=== PATIENT | male | born 1955 | race American Indian/Alaskan Native ===

== ENCOUNTER 2018-06-16 11:25 | Outpatient (CLI) | payer OTHER ==
[2018-06-16] MEDS ORDERED: PROVENTIL IH ONE (12:32)
== END 2018-06-16 11:26 | disposition home or self-care (01) ==
LOC: PF 11:25
PROVIDERS: ATTEND Internal Medicine
DX: I11.0 Hypertensive heart disease with heart failure (principal); I50.9 Heart failure, unspecified; J44.9 Chronic obstructive pulmonary disease, unspecified; E11.9 Type 2 diabetes mellitus without complications; Z87.891 Personal history of nicotine dependence
CPT/HCPCS: 94060; 94640

== ENCOUNTER 2018-08-23 09:29 | Inpatient (IN) | payer OTHER ==
[2018-08-23 11:09] LABS: Basophils # (Auto) 0.1 K/mm3 (0.0-0.1); Basophils % (Auto) 1.1 % (0.0-1.8); Eosinophils # (Auto) 0.3 K/mm3 (0.0-0.4); Eosinophils % (Auto) 4.7 % (0.0-4.3); Hematocrit 37.3 % (35.5-45.6); Lymphocytes # (Auto) 1.7 K/mm3 (1.2-5.4); Lymphocytes % (Auto) 25.7 % (13.4-35.0); Mean Corpuscular HGB Conc 35 % (32-34); Mean Corpuscular Volume 91 fl (84-94); Monocytes # (Auto) 0.8 K/mm3 (0.0-0.8); Monocytes % (Auto) 13.2 % (0.0-7.3); Platelet Count 212 K/mm3 (140-440); Red Cell Distribution Width 15.3 % (13.2-15.2)
--- NOTE | 2018-08-23 11:18 | Emergency Department Report ---
ED Extremity Problem HPI - General Chief complaint: Extremity Injury, Upper Stated complaint: LFT ARM SWELLING/CONGESTED HEART Time Seen by Provider: 08/23/18 10:20 Source: patient Mode of arrival: Ambulatory Limitations: No Limitations - History of Present Illness Initial comments: Patient is a 62-year-old male with a past history of COPD diabetes hypertension who is presenting with left arm pain and swelling. Patient states he had a pacemaker placed last week in the left upper chest. Patient noted last night that his arm is now similar was in the bicep region and he has some swelling. Patient states he also has some discomfort near his surgery site last night. Patient denies any nausea vomiting fevers chills. Patient states he d oes have some shortness of breath however this is chronic and is not worse than his baseline. Severity scale (0 -10): 2 - Related Data Allergies Allergy/AdvReac Type Severity Reaction Status Date / Time No Known Allergies Allergy Verified 08/23/18 09:29 ED Review of Systems ROS: Stated complaint: LFT ARM SWELLING/CONGESTED HEART Other details as noted in HPI Comment: All other systems reviewed and negative ED Past Medical Hx - Past Medical History Hx Hypertension: Yes Hx Diabetes: Yes Hx Asthma: Yes Additional medical history: Hypothyroidism, staph infections - Surgical History Hx Pacemaker: Yes (defibillator) - Social History Smoking Status: Never Smoker Substance Use Type: None ED Physical Exam - General Limitations: No Limitations General appearance: alert, in no apparent distress - Head Head exam: Present: atraumatic, normocephalic - Eye Eye exam: Present: normal appearance - ENT ENT exam: Present: mucous membranes moist - Neck Neck exam: Present: normal inspection. Absent: tenderness - Respiratory Respiratory exam: Present: normal lung sounds bilaterally. Absent: respiratory distress, wheezes, rales, rhonchi - Cardiovascular Cardiovascular Exam: Present: regular rate, normal rhythm. Absent: systolic murmur, diastolic murmur, rubs, gallop - GI/Abdominal GI/Abdominal exam: Present: soft, normal bowel sounds. Absent: distended, tenderness, guarding, rebound - Rectal Rectal exam: Present: deferred - Extremities Exam Extremities exam: Present: normal inspection, full ROM, tenderness, other (patient's left upper extremity shows slight swelling compared to the right. Patient has an intact radial pulse. Patient does have some hyperemia to the L hand and forearm compared to the right.) - Back Exam Back exam: Present: normal inspection - Neurological Exam Neurological exam: Present: alert, oriented X3 - Psychiatric Psychiatric exam: Present: normal affect, normal mood - Skin Skin exam: Present: warm, dry, intact, normal color. Absent: rash ED Course Vital Signs 08/23/18 09:34 Temperature 97.8 F Pulse Rate 65 Respiratory 18 Rate Blood Pressure 152/57 [Left] O2 Sat by Pulse 97 Oximetry ED Medical Decision Making - Lab Data Result diagrams: 08/23/18 10:29 08/23/18 10:29 Lab Results 08/23/18 08/23/18 08/23/18 Range/Units 10:29 10:29 10:29 WBC 6.4 (4.5-11.0) K/mm3 RBC 4.10 (3.65-5.03) M/mm3 Hgb 13.0 (11.8-15.2) gm/dl Hct 37.3 (35.5-45.6) % MCV 91 (84-94) fl MCH 32 (28-32) pg MCHC 35 H (32-34) % RDW 15.3 H (13.2-15.2) % Plt Count 212 (140-440) K/mm3 Lymph % (Auto) 25.7 (13.4-35.0) % [place] % (Auto) 13.2 H (0.0-7.3) % Eos % (Auto) 4.7 H (0.0-4.3) % Baso % (Auto) 1.1 (0.0-1.8) % Lymph # 1.7 (1.2-5.4) K/mm3 [place] # 0.8 (0.0-0.8) K/mm3 Eos # 0.3 (0.0-0.4) K/mm3 Baso # 0.1 (0.0-0.1) K/mm3 Seg Neutrophils % 55.3 (40.0-70.0) % Seg Neutrophils # 3.6 (1.8-7.7) K/mm3 PT 12.1 L (12.2-14.9) Sec. INR 0.85 L (0.87-1.13) APTT 27.2 (24.2-36.6) Sec. Sodium 142 (137-145) mmol/L Potassium 4.8 (3.6-5.0) mmol/L Chloride 101.9 (98-107) mmol/L Carbon Dioxide 26 (22-30) mmol/L Anion Gap 19 mmol/L BUN 24 H (9-20) mg/dL Creatinine 1.2 (0.8-1.5) mg/dL Estimated GFR > 60 ml/min BUN/Creatinine Ratio 20 % Glucose 90 (75-100) mg/dL Calcium 8.6 (8.4-10.2) mg/dL Troponin T < 0.010 (0.00-0.029) ng/mL NT-Pro-B Natriuret Pep 875.9 (0-900) pg/mL - EKG Data -: EKG Interpreted by Me - EKG Data 08/23/18 11:57 EKG shows a atrial paced rhythm rate of 60 normal axis normal intervals. There is nonspecific intraventricular conduct shouldn't delay. Anterior septal Q waves are present. There is no evidence of STDs elevation. Time of interpretation is 0850 - Radiology Data Patient has an acute DVT in the left upper extremity from the mid bicep area through the axilla to the subclavian - Medical Decision Making Patient had recent surgery and some left upper extremity discomfort. Patient with acute DVT. Patient started on heparin. Vascular surgeon at the [facility] has been consulted. Patient be admitted to the hospitalist service under Dr. Jose. Critical Care Time: Yes (30) Critical care attestation.: If time is entered above; I have spent that time in minutes in the direct care of this critically ill patient, excluding procedure time. ED Disposition Clinical Impression: Acute DVT (deep venous thrombosis) Qualifiers: DVT location: upper extremity Affected thrombotic vein of extremity: unspecified vein of extremity Laterality: left Qualified Code(s): I82.622 - Acute embolism and thrombosis of deep veins of left upper extremity Disposition: -09 OP ADMIT IP TO THIS HOSP Is pt being admited?: Yes Does the pt Need Aspirin: No Condition: Stable Time of Disposition: 11:59
[2018-08-23 11:20] LABS: INR 0.85 (0.87-1.13)
[2018-08-23 11:21] LABS: Partial Thromboplastin Time 27.2 Sec. (24.2-36.6)
[2018-08-23 11:30] LABS: BUN/Creatinine Ratio 20; Blood Urea Nitrogen 24 mg/dL (9-20); Calcium 8.6 mg/dL (8.4-10.2); Hemolysis Index 175
[2018-08-23] MEDS ORDERED: SODIUM CHLORIDE FLUSH SYRINGE 10 ML IV PRN (11:51)
[2018-08-23] MEDS ORDERED: TYLENOL PO PRN (11:51)
[2018-08-23] MEDS ORDERED: ZOFRAN IV PRN (11:51)
[2018-08-23] MEDS ORDERED: PERCOCET 5/325 PO PRN (11:51)
[2018-08-23] MEDS ORDERED: PROVENTIL IH PRN (11:51)
--- NOTE | 2018-08-23 11:51 | History and Physical Report ---
History of Present Illness Chief complaint: My arm is swollen, and it hurts a little History of present illness: 62 YO Male with HTN, DM, Asthma, Hypothyroidism, Obesity, Cardiomyopathy S/P Pacemaker Placement presents to ED for evaluation. Pt states that he has experienced Left arm pain and swelling over the past week which has gotten progressively worse over the same time frame with acutely worsening symptoms that awoke him from sleep last night. Pt transported to [facility] via private vehicle. Pt seen and evaluated in ED and found to have LUE DVT complicated by LUE edema. Pt admitted to medical floor. Heparin drip initiated in ED. Vascular surgery consulted in ED. Pt denies fever, chillls, CP, Palpitations, NVD, Trauma, BRBPR, Productive cough, individual/family history of DVT/PE/Blood Clotting Disorders. No previous admissions. No medication listed for reconciliation at time of exam. Past History Past Medical History: diabetes, hypertension, hypothyroidism, other ( asthma.obesity) Past Surgical History: Other (pacemaker) Social history: Family history: diabetes, hypertension Medications and Allergies Allergies Allergy/AdvReac Type Severity Reaction Status Date / Time No Known Allergies Allergy Verified 08/23/18 09:29 Review of Systems Constitutional: no weight loss, no weight gain, no fever, no chills Ears, nose, mouth and throat: no ear pain, no ear discharge, no tinnitis, no decreased hearing, no nose pain Cardiovascular: no chest pain, no orthopnea, no palpitations, no rapid/irregular heart beat, no edema, no syncope Respiratory: no cough, no cough with sputum, no excessive sputum, no hemoptysis, no shortness of breath Gastrointestinal: no nausea, no vomiting, no diarrhea, no constipation Genitourinary Male: no hematuria, no flank pain, no discharge, no urinary frequency, no urinary hesitancy Rectal: no pain, no incontinence, no bleeding Musculoskeletal: no neck stiffness, no neck pain, no shooting arm pain, no arm numbness/tingling, no low back pain Integumentary: no rash, no pruritis, no redness, no sores, no wounds Neurological: no head injury, no transient paralysis, no parathesias, no tingling, no syncope Psychiatric: no memory loss, no change in sleep habits, no insomnia, no hypersomnia, no change in appetite, no change in libido, no suicidal ideation Endocrine: no cold intolerance, no heat intolerance, no polyphagia, no excessive thirst, no polydipsia, no polyuria Hematologic/Lymphatic: no easy bruising, no easy bleeding, no lymphedema Allergic/Immunologic: no urticaria, no allergic rhinitis, no wheezing Exam - Constitutional Vitals: Temp Pulse Resp BP Pulse Ox 97.8 F 65 18 152/57 97 08/23/18 09:34 08/23/18 09:34 08/23/18 09:34 08/23/18 09:34 08/23/18 09:34 General appearance: Present: mild distress, obese - EENT Eyes: Present: PERRL ENT: hearing intact, clear oral mucosa - Neck Neck: Present: supple, normal ROM - Respiratory Respiratory effort: normal Respiratory: bilateral: CTA - Cardiovascular Heart Sounds: Present: S1 & S2. Absent: rub, click - Extremities Extremity abnormal: edema, other (LUE,) Peripheral Pulses: within normal limits - Abdominal General gastrointestinal: Present: soft, non-tender, non-distended, normal bowel sounds Male genitourinary: Present: normal - Integumentary Integumentary: Present: clear, warm, dry - Musculoskeletal Musculoskeletal: gait normal, strength equal bilaterally - Psychiatric Psychiatric: appropriate mood/affect, intact judgment & insight - Neurologic Neurologic: CNII-XII intact, moves all extremities Results - Labs CBC & Chem 7: 08/23/18 10:29 08/23/18 10:29 Labs: Abnormal lab results 08/23/18 08/23/18 08/23/18 Range/Units 10:29 10:29 10:29 MCHC 35 H (32-34) % RDW 15.3 H (13.2-15.2) % [place] % (Auto) 13.2 H (0.0-7.3) % Eos % (Auto) 4.7 H (0.0-4.3) % PT 12.1 L (12.2-14.9) Sec. INR 0.85 L (0.87-1.13) BUN 24 H (9-20) mg/dL Assessment and Plan - Patient Problems (1) Acute DVT (deep venous thrombosis) Current Visit: Yes Status: Acute Qualifiers: DVT location: upper extremity Affected thrombotic vein of extremity: unspecified vein of extremity Laterality: left Qualified Code(s): I82.622 - Acute embolism and thrombosis of deep veins of left upper extremity Plan to address problem: Admit to medical floor: Vascular surgery consulted, BLAKEE Duplex, therapeutic anticoagualtion, Hypercoagulable profile prior to initiation of therapeutic anticoagulation. (2) Diabetes Current Visit: Yes Status: Acute Plan to address problem: AD diet, insulin, accu check, (3) HTN (hypertension) Current Visit: Yes Status: Acute Qualifiers: Hypertension type: essential hypertension Qualified Code(s): I10 - Essential (primary) hypertension Plan to address problem: monitor bp q shift, continue medical management. (4) Anxiety Current Visit: Yes Status: Acute Plan to address problem: Ativan prn, supportive care (5) HLD (hyperlipidemia) Current Visit: Yes Status: Acute Qualifiers: Hyperlipidemia type: mixed hyperlipidemia Qualified Code(s): E78.2 - Mixed hyperlipidemia Plan to address problem: Lipid panel, statin therapy, low cholesterol diet, (6) DVT prophylaxis Current Visit: Yes Status: Acute Plan to address problem: SCD to BLE while in bed.
[2018-08-23] MEDS ORDERED: HEPARIN 10,000 UNITS/10 ML IV ONE (11:55)
[2018-08-23] MEDS ORDERED: HEPARIN/ 0.45% NACL-25,000 UNIT/500 ML 25,000 UNIT/500 ML BAG IV SCH (12:00)
--- NOTE | 2018-08-23 12:21 | Vascular Lab Report ---
PROCEDURE: VL VENOUS DUPLEX UE LT TECHNIQUE: Ellison scale, color and pulsed Doppler ultrasound with color flow and spectral analysis eval uation of left upper extremity was performed to assess for deep vein thrombosis. HISTORY: recent pacemaker surgery, LUE swelling and pain COMPARISONS: None currently available. FINDINGS: LEFT extremity: Pacemaker in the left subclavian vein. Noncompressibility of the left subclavian and left axillary ve in with minimal flow. Otherwise the remainder of the left upper extremity demonstrated compressibility and flow. IMPRESSION: * Acute DVT in the left subclavian and left axillary veins. This document is electronically signed by Fly Tirado MD., August 23 2018 12:19:05 PM ET
[2018-08-23] MEDS ORDERED: D50W (25GM) Syringe IV PRN (14:52)
--- NOTE | 2018-08-23 14:56 | Consultation ---
History of Present Illness - Reason for Consult Consult date: 08/23/18 Requesting physician: GILL CLARK - History of Present Illness Patient underwent placement of a AICD defibrillator generator and leads via a left subclavian approach approximately 10 days ago at [facility]. Developed left arm tightness some swelling and discomfort. Presented to the emergency room where a duplex scan was performed which showed an accessory subclavian DVT. Patient currently on aspirin and Plavix for antiplatelet therapy. He denies new shortness of breath or chest discomfort. He was admitted to the hospital intravenous heparin and we were consulted to evaluate the need for any more aggressive measures. Past History Past Medical History: acute MA, diabetes, hypertension, hypothyroidism, other (asthma.obesity, congestive heart failure with ejection fraction between 20 and 30%) Past Surgical History: Other (pacemaker) Social history: Family history: diabetes, hypertension Medications and Allergies Allergies Allergy/AdvReac Type Severity Reaction Status Date / Time No Known Allergies Allergy Verified 08/23/18 09:29 Active Meds: Active Medications Acetaminophen (Tylenol) 650 mg PO Q4H PRN PRN Reason: Pain MILD(1-3)/Fever >100.5/SOLANO Albuterol (Proventil) 2.5 mg IH Q4H PRN PRN Reason: Shortness Of Breath Heparin Sodium/Sodium Chloride (Heparin/ 0.45% Nacl-25,000 Unit/500 Ml) 25,000 unit in 500 mls @ 30 mls/hr IV TITR NATE; Protocol Last Admin: 08/23/18 12:25 Dose: 1,500 units/hr, 30 mls/hr Documented by: Ondansetron HCl (Zofran) 4 mg IV Q8H PRN PRN Reason: Nausea And Vomiting Oxycodone/Acetaminophen (Percocet 5/325) 1 tab PO Q6H PRN PRN Reason: Pain, Moderate (4-6) Sodium Chloride (Sodium Chloride Flush Syringe 10 Ml) 10 ml IV BID NATE Sodium Chloride (Sodium Chloride Flush Syringe 10 Ml) 10 ml IV PRN PRN PRN Reason: LINE FLUSH Review of Systems Cardiovascular: leg edema, other (recent left arm swelling) Respiratory: cough Exam - Constitutional Vitals: Temp Pulse Resp BP Pulse Ox 97.8 F 60 22 133/77 95 08/23/18 13:37 08/23/18 13:37 08/23/18 13:37 08/23/18 13:37 08/23/18 13:37 General appearance: Present: no acute distress - Cardiovascular Details: Left pacemaker pocket with surgical incisions intact. No swelling no erythema no evidence of infection. - Extremities Extremity abnormal: tenderness, other (left upper extremity with mild edema and tenderness in the biceps region.) Results - Labs CBC & Chem 7: 08/23/18 10:29 08/23/18 10:29 Labs: Abnormal lab results 08/23/18 08/23/18 08/23/18 Range/Units 10:29 10:29 10:29 MCHC 35 H (32-34) % RDW 15.3 H (13.2-15.2) % [place] % (Auto) 13.2 H (0.0-7.3) % Eos % (Auto) 4.7 H (0.0-4.3) % PT 12.1 L (12.2-14.9) Sec. INR 0.85 L (0.87-1.13) BUN 24 H (9-20) mg/dL - Imaging and Cardiology Venous US: report reviewed, image reviewed (left axillary subclavian DVT) Assessment and Plan Patient has post pacemaker implantation deep venous thrombosis involving the left axilla subclavian veins. Her discomfort is experiencing is relatively moderate to mild. I have given him appropriate elevation instructions. I would place him on anticoagulation specifically Eliquis initial 10 mg twice a day dose for 1 week followed by reduction to 5 mg twice daily dose after that. Also stop his aspirin to keep him on Plavix. I would also notify [facility] of his recent admission. Would start the oral anticoagulation and 2 hours later discontinue the IV heparin. I should probably could go home in tomorrow if he can obtain his prescriptions. Follow up either with his cardiology group in 2-3 weeks or our group in the similar time frame.
--- NOTE | 2018-08-23 15:07 | Event Note ---
Date: 08/23/18 heparin discontinued. Pt initiated on Eliquis therapy, Discontinue aspirin as of today, but continue plavix and eliquis, Elevate LUE- as per vascular surgery recommendations.
[2018-08-23] MEDS: HumaLOG SUB-Q SCH (17:48)
[2018-08-23 19:22] LABS: INR 0.9 (0.87-1.13)
[2018-08-23 19:23] LABS: Partial Thromboplastin Time 33.9 Sec. (24.2-36.6)
[2018-08-23] MEDS ORDERED: NITROSTAT SL PRN (20:22)
[2018-08-23] MEDS ORDERED: NITROGLYCERIN 0.4 MG SL PRN (20:58)
[2018-08-23] MEDS ORDERED: NON-FORMULARY (Alprazolam 1 MG) PO SCH (20:58)
--- NOTE | 2018-08-23 21:02 | Event Note ---
Date: 08/23/18 Medication reconciled upon notification of medication being listed in computer at 2058hrs.
[2018-08-23] MEDS: XANAX PO SCH (21:55)
[2018-08-23] MEDS: COREG PO SCH (21:56)
[2018-08-23] MEDS ORDERED: ELIQUIS PO SCH (22:00)
[2018-08-23] MEDS: SODIUM CHLORIDE FLUSH SYRINGE 10 ML IV SCH (22:42)
[2018-08-23] MEDS: LYRICA PO SCH (22:42)
[2018-08-24] MEDS: HumaLOG SUB-Q SCH ×2 (00:38→06:20)
[2018-08-24 06:48] VITALS: BP 147/87
[2018-08-24] MEDS ORDERED: PULMICORT IH SCH (08:00)
[2018-08-24] MEDS ORDERED: BROVANA NEBU IH SCH (08:00)
[2018-08-24] MEDS: SODIUM CHLORIDE FLUSH SYRINGE 10 ML IV SCH (09:00)
[2018-08-24] MEDS: LYRICA PO SCH (09:00)
[2018-08-24] MEDS: COREG PO SCH (09:00)
[2018-08-24] MEDS: XANAX PO SCH (09:00)
--- NOTE | 2018-08-24 09:27 | Event Note ---
Date: 08/24/18 Was notifed, shortly after the patient left the floor. Was unable to see patient. Attempt to holly him down the Elevator was futile as he had left already. Per nursing staff, patient was furious, tore up Dr Hipolito tamayo, Refused his medications and the food. They advised him of the risk of leaving against medical advise considering the severity of his clinical condition but he still left. Again I did not set my eyes on this patient.
[2018-08-24] MEDS ORDERED: LISINOPRIL 2.5 MG PO SCH (10:00)
[2018-08-24] MEDS ORDERED: PREGABALIN 75 MG PO SCH (10:00)
[2018-08-24] MEDS ORDERED: FORMOTEROL INHALATION SCH (10:00)
[2018-08-24] MEDS ORDERED: ELIQUIS PO SCH (10:00)
[2018-08-24] MEDS ORDERED: LASIX PO SCH (10:00)
[2018-08-24] MEDS ORDERED: ZESTRIL PO SCH (10:00)
[2018-08-24] MEDS ORDERED: BUDESONI INHALATION SCH (10:00)
[2018-08-24] MEDS ORDERED: PLAVIX PO SCH (10:00)
[2018-08-24] MEDS ORDERED: DELTASONE PO SCH (10:00)
[2018-08-24] MEDS ORDERED: LYRICA PO SCH (10:00)
[2018-08-24] MEDS ORDERED: PREDNISONE 20 MG PO SCH (10:00)
[2018-08-30] MEDS ORDERED: ELIQUIS PO SCH (22:00)
[2018-09-08 11:25] LABS: Antithrombin III Antigen SEE SCANNED RESULT; Cardiolipin Ab IgA SEE SCANNED RESULT; Cardiolipin Ab IgG SEE SCANNED RESULT; Cardiolipin Ab IgM SEE SCANNED RESULT; Interpretation HYPERCOAG PROF SEE SCANNED RESULT; Protein C Antigen SEE SCANNED RESULT; Protein S, Free SEE SCANNED RESULT; Protein S, Total SEE SCANNED RESULT
== END 2018-08-24 09:15 | disposition left against medical advice (07) | DRG 300 ==
LOC: ED 09:29 → 3A 11:51
PROVIDERS: ADMIT Internal Medicine; ATTEND Internal Medicine
DX: I82.622 Acute embolism and thrombosis of deep veins of left upper extremity (principal); I42.9 Cardiomyopathy, unspecified; I10 Essential (primary) hypertension; E11.9 Type 2 diabetes mellitus without complications; F41.9 Anxiety disorder, unspecified; E78.2 Mixed hyperlipidemia; E03.9 Hypothyroidism, unspecified; J44.9 Chronic obstructive pulmonary disease, unspecified; E66.9 Obesity, unspecified; Z53.21 Procedure and treatment not carried out due to patient leaving prior to being seen by health care provider; Z68.36 Body mass index [BMI] 36.0-36.9, adult; Z83.3 Family history of diabetes mellitus; Z82.49 Family history of ischemic heart disease and other diseases of the circulatory system; Z95.810 Presence of automatic (implantable) cardiac defibrillator
CPT/HCPCS: 36415; 80048; 82962; 83516; 83880; 84484; 85025; 85301; 85305; 85307; 85610; 85613; 85730; 86147; 93005; 93010; 94640; G0378; A9270-GY; J1644; J7512